=== PATIENT | female | born 1985 | race African-American/Black ===

== ENCOUNTER → 2016-10-11 | Outpatient (CLI) | payer BC ==
[2016-08-30 13:09] VITALS: BP 125/63
--- NOTE | 2016-10-11 15:06 | CT ---
CT OF THE ABDOMEN AND PELVIS WITH CONTRAST HISTORY: Cholecystectomy 1 month ago. Lump in the umbilical area. Comparison: None Technique: Multiple axial images of the abdomen and pelvis were obtained from the lung bases to the pubic symph ysis follow the administration of IV contrast as well as oral contrast. Dose reduction techniques i ncluding Automated Exposure Control (AEC) and adjustment of mA and kV were utlized. Findings: The heart is normal in size. There is no pericardial effusion. Lung bases are clear without focal co nsolidation, pleural effusion or pneumothorax. Liver and spleen are normal in size, enhancement characteristics and contour. No focal lesions. The portal vein is patent. No ductal dilitation. Status post cholecystectomy. The pancreas is unremarkab le. Adrenal glands are normal. Kidneys enhance symmetrically without hydronephrosis or nephrolithias is. No bowel obstruction or inflammation. Normal appendix. No abnormal appearing mesenteric or retroperi toneal lymph nodes. No free fluid or fluid collections. Normal appearance of the umbilical trocar si te. The bladder is normal in appearance. Uterus and ovaries present. No free fluid or abnormal pelvic ly mph nodes. No aggressive osseous lesions. IMPRESSION: 1. Normal post cholecystectomy appearance of the abdomen as above. Reported By:
== END ==
LOC: RAD 10:16
PROVIDERS: ATTEND Student in an Organized Health Care Education/Training Program
DX: Z09 Encounter for follow-up examination after completed treatment for conditions other than malignant neoplasm (principal)
CPT/HCPCS: 74177

== ENCOUNTER 2017-10-15 07:10 | Day surgery (SDC) | payer BC, OTHER ==
[2017-10-15] MEDS ORDERED: NS 1000 ML 1,000 ML ONE (07:18)
[2017-10-15 09:13] VITALS: BP 139/85
[2017-10-15] MEDS ORDERED: DIPRIVAN VIAL ONE (10:25)
--- NOTE | 2017-10-15 13:38 | OR.GENERIC ---
Post-Op Note Generic - Post-Op Note Operative Report: Procedure Note October 15, 2017 Pre-Operative Diagnosis: 1. Right upper quadrant pain. 2. Constipation. Post-Operative Diagnosis: Poor prep. Procedure: Flexible sigmoidoscopy.. Surgeon: Que Clark MD Obstetrics And Gynecology Professor: Vanessa Servin CRNA Specimens: None. Estimated blood loss: None. Complications: None. Summary: The patient is a 32 year old female who presented with persistent right upper quadrant pain and constipation. The patient was offered colonoscopy. The risk and benefits of the procedure including difficulty with anesthesia, bleeding, infection, as well as perforation were discussed with the patient. The patient understood these risks and requested the procedure. On October 15, 2017, the patient was brought to the endoscopy suite. A time out was performed verifying the patient and procedure. The patient was placed in a left lateral decubitus position. After satisfactory induction of monitored anesthesia care, a rectal exam was performed. This was normal. Next, an endoscopy was advanced through the anus and directed to the transverse colon without difficulty. The scope was then withdrawn viewing all mucosal surfaces. The patients prep was poor. Stool was noted in the lower colon but became dense in the transverse colon. Visualization was limited. The descending and sigmoid portions of the colon were normal. Specifically, there were no masses, polyps, or diverticula. However, complete inspection was not possible due to stool present. The scope was withdrawn and the procedure terminated. The patient was taken to the recovery room in stable condition. There were no complications.
== END 2017-10-15 09:02 | disposition home or self-care (01) ==
LOC: SURG1 07:10
PROVIDERS: ATTEND Student in an Organized Health Care Education/Training Program
PROC: 0DJD8ZZ Inspection of Lower Intestinal Tract, Via Natural or Artificial Opening Endoscopic (ICD-10-PCS; principal; 2017-10-15 08:30)
DX: R10.11 Right upper quadrant pain (principal); K59.09 Other constipation; Z01.810 Encounter for preprocedural cardiovascular examination
CPT/HCPCS: 93005; 93010; A4217; J3490

== ENCOUNTER 2017-11-21 07:34 | Emergency (ER) | payer OTHER ==
[2017-11-21 07:41] VITALS: BP 140/90; BMI 39.2
--- NOTE | 2017-11-21 08:15 | DR.GENAD ---
HPI - PCP Primary Care Physician: DR. ROWLEY - Complaint/Symptoms Chief Complaint Doctors Comments: As noted in nurses notes, plus matted eyes q a.m. S/S started 2 days ago. She has not discussed these with her PCP yet. She has no fever. She denies exposure to known ill-contacts. Chief Complaint:: FRONTAL HEADACHE, NONPRODUCTIVE COUGH, CONGESTION - Nurses notes reviewed Nurses Notes Review: Yes - Source History Provided: Patient - Mode of Arrival Mode of Arrival: Ambulatory - Timing Onset of Chief Complaint: 11/18/17 PMH - PMH Past Medical History: Yes Past Medical History: GERD, Hypertension Past Medical History Comment: HIATAL HERNIA; ASYMPTOMATIC ARRYTHMIA Past Surgical History: Yes Surgical History: Cholecystectomy, [facility] Surgery - Family History History of Family Medical Conditions: No - Social History Does patient currently use any type of tobacco product: No Have you used tobacco products in the last 12 months: No Type of Tobacco Use: None Does any household member use tobacco: No Alcohol Use: None Do you use any recreational Drugs:: No Lives With: Family Lives Where: Home - infectious screening In the last 2 months have you had wt loss of >10#?: NO Have you had fever, night sweats or hemotysis?: No Have you traveled outside the country in the last 6 months?: No Isolation: Standard ROS - Review of Systems Constitutional: No Symptoms Reported, Other (sinus congestion/soreness.) Eyes: Discharge ENTM: Nose Discharge, Nose Congestion Respiratoy: Moist Cough, Dry Cough Cardiovascular: No Symptoms Reported Gastrointestinal/Abdominal: No Symptoms Reported Genitourinary: No Symptoms Reported Neurological: No Symptoms Reported Musculoskeletal: No Symptoms Reported Integumentary: No Symptoms Reported Hematologic/Lymphatic: No Symptoms Reported Endocrine: No Symptoms Reported Psychiatric: No Symptoms Reported All Other Systems: Reviewed and Negative PE - Vital Signs Vitals: Temperature 97.5 F Pulse Rate 99 Respiratory Rate 20 Blood Pressure 140/90 O2 Sat by Pulse Oximetry 100 - General Limitations: No Limitations General Appearance: Alert, In No Apparent Distress - Head Head Exam: Normal Inspection - Eyes Eye exam: Normal Appearance - ENT External Ear Exam: Normal External Inspection TM/Canal Exam: Bilateral Normal Nose Exam: Sinus Tenderness (frontaland maxillary b/l.) Mouth Exam: Normal Inspection Throat Exam: Normal Inspection - Neck Neck Exam: Normal Inspection - Chest Chest Inspection: Normal Inspection - Respiratory Respiratory Exam: Normal Lung Sounds Bilat - Cardiovascular Cardiovascular Exam: Regular Rate, Normal Rhythm, +S1, +S2 - Abdominal Exam Abdominal Exam: Normal Inspection, Normal Bowel Sounds, Soft - Extremities Extremities Exam: Normal Inspection, Full ROM - Back Back Exam: Normal Inspection, Full ROM - Neurologic Neurological Exam: Alert, Oriented X3 - Psychiatric Psychiatric Exam: Normal Affect, Normal Mood - Skin Skin Exam: Warm, Dry, Intact, Normal Color - Diagnosis Discharge Problem: Sinusitis, acute - Discharge Plan Disposition: HOME, SELF-CARE Condition: Stable - Follow ups/Referrals Follow ups/Referrals: JAMIE GALLO [Primary Care Provider] - 3 days - Instructions Instructions: Sinusitis, Adult, [id number]
== END 2017-11-21 08:30 | disposition home or self-care (01) ==
LOC: ER 07:46
DX: J01.80 Other acute sinusitis (principal)
CPT/HCPCS: 99281; 99282